=== PATIENT | male | born 1945 | race Caucasian/White ===

== ENCOUNTER 2025-05-08 12:45 | Emergency (ER) | payer OTHER, MEDICARE ==
[2025-05-08 15:43] VITALS: BP 119/70; PULSE 60
== END 2025-05-08 15:35 | disposition home or self-care (01) ==
LOC: LL.ED 12:45
DX: M71.21 Synovial cyst of popliteal space [Baker], right knee (principal); Z91.048 Other nonmedicinal substance allergy status; Z88.8 Allergy status to other drugs, medicaments and biological substances
CPT/HCPCS: 73562-RT; 93971; 99284